=== PATIENT | female | born 1975 | race Caucasian/White ===

== ENCOUNTER 2017-04-21 15:13 | Emergency (ER) | payer MEDICAID, OTHER ==
[~2017-04-21] VITALS: Ht 170.2 cm; Wt 78.8 kg
[~2017-04-21 15:13] MED LIST: ALBU8.5H5 INH; AMLO5TAB4 PO; IPRA4AER INH; TIOT18CA INH
[2017-04-21 16:42] VITALS: BP 138/78
== END 2017-04-21 17:15 | disposition home or self-care (01) ==
LOC: ED 16:16
DX: I10 Essential (primary) hypertension (principal); E11.9 Type 2 diabetes mellitus without complications
CPT/HCPCS: 36415; 80047; 93005; 99285

== ENCOUNTER 2017-07-08 14:47 | Emergency (ER) | payer OTHER ==
[~2017-07-08] VITALS: Ht 170.2 cm; Wt 79.2 kg
[2017-07-08 14:51] VITALS: BP 133/89
== END 2017-07-08 16:57 | disposition home or self-care (01) ==
LOC: ED 16:50
DX: S90.31XA Contusion of right foot, initial encounter (principal); J45.909 Unspecified asthma, uncomplicated; E11.9 Type 2 diabetes mellitus without complications; I10 Essential (primary) hypertension; X58.XXXA Exposure to other specified factors, initial encounter; Y93.89 Activity, other specified; Y99.8 Other external cause status; Y92.009 Unspecified place in unspecified non-institutional (private) residence as the place of occurrence of the external cause
CPT/HCPCS: 99284

== ENCOUNTER 2018-05-10 12:21 | Emergency (ER) | payer SELFPAY ==
[~2018-05-10] VITALS: Ht 170.2 cm; Wt 79.0 kg
[2018-05-10 13:13] LABS: MICROSCOPIC NOT IND
[2018-05-10 13:18] LABS: BASOPHILS # (AUTO) 0.04 x10^3/uL (0-0.1); BASOPHILS % (AUTO) 1 % (0-1); EOSINOPHILS # (AUTO) 0.36 x10^3/uL (0-0.4); EOSINOPHILS % (AUTO) 5 % (1-7); LYMPHOCYTES # (AUTO) 2.34 x10^3/uL (1-3.4); LYMPHOCYTES % (AUTO) 29 % (22-44); MD NO; MEAN CORPUSCULAR HEMOGLOBIN 29.1 pg (27.0-34.8); MEAN CORPUSCULAR HGB CONC 33.3 g/dL (32.4-35.8); MEAN CORPUSCULAR VOLUME 87.4 fL (80-100); MEAN PLATELET VOLUME 8.6 fL (7.4-10.4); MONOCYTES # (AUTO) 0.43 x10^3/uL (0.2-0.8); MONOCYTES % (AUTO) 5 % (2-9); NEUTROPHILS # (AUTO) 4.88 x10^3/uL (1.8-6.8); NEUTROPHILS % (AUTO) 61 % (42-75); PLATELET COUNT 259 x10^3/uL (130-400); RED BLOOD COUNT 5.37 x10^6/uL (3.82-5.3); RED CELL DISTRIBUTION WIDTH 13.7 % (9.6-15.2)
[2018-05-10] MEDS ORDERED: LISINOPRIL 10 MG TABLET PO ONE (13:30)
[2018-05-10 13:31] LABS: ANION GAP 9 mmol/L (5-15); CALCIUM 9.1 mg/dL (8.5-10.1); CHLORIDE 106 mmol/L (98-107); CREATININE 0.76 mg/dL (0.55-1.02)
[2018-05-10] MEDS ORDERED: LISINOPRIL 10 MG TABLET ONE (13:31)
[2018-05-10 13:42] LABS: CULTURE INDICATED? NO
[2018-05-10 13:43] LABS: TROPONIN I < 0.015 ng/mL (0.000-0.045)
[2018-05-10 13:53] VITALS: BP 126/84
== END 2018-05-10 14:19 | disposition home or self-care (01) ==
LOC: ED 14:10
DX: I10 Essential (primary) hypertension (principal); E11.65 Type 2 diabetes mellitus with hyperglycemia; Z88.0 Allergy status to penicillin; Z91.19 Patient's noncompliance with other medical treatment and regimen
CPT/HCPCS: 36415; 71046; 80048; 81003; 84484; 85025; 93005; 99285